=== PATIENT | male | born 1960 | race Caucasian/White ===

== ENCOUNTER 2024-01-02 12:57 | Outpatient (REF) | payer MEDICARE, SELFPAY ==
[2024-01-02 13:15] LABS: MANUAL DIFF FLAG NO
[2024-01-02 13:41] LABS: Basophils Percent Auto 0.5 % (0-2); Eosinophils Percent Auto 0.4 % (0-4); Hematocrit 38.2 % (42.0-52.0); Hemoglobin 13.4 g/dl (14.0-18.0); Imm Gran Abs Auto 0.02 X10*3/uL (0.00-0.03); Imm Gran Pct Auto 0.3 % (0.0-0.4); Lymphocytes Absolute Auto 2.6 X10*3/uL (1.2-4.9); Mean Corpuscular HGB Conc 35.1 g/dl (31.0-36.0); Mean Corpuscular Hemoglobin 32.9 pg (27.0-33.0); Mean Corpuscular Volume 93.9 fL (80.0-98.0); Mean Platelet Volume 9.4 fL (9.4-12.4); Monocytes Absolute Auto 0.5 X10*3/uL (0.1-1.2); Monocytes Percent Auto 5.9 % (2-11); Neutrophils Absolute Auto 4.9 x10*3/uL (2.0-8.3); Neutrophils Percent Auto 60.9 % (45-73); Platelet Count 256 X10*3/uL (160-400); Red Blood Count 4.07 X10*6/uL (4.60-5.80); Red Cell Distribution Width 12.7 % (11.0-16.0)
[2024-01-02 13:51] LABS: Estimated Average Glucose 108 mg/dL; Hemoglobin A1c % 5.4 % (<6.0)
[2024-01-02 14:18] LABS: Alanine Aminotransferase 26 U/L (0-40); Albumin Level 4.3 g/dL (3.5-5.0); Alkaline Phosphatase 54 U/L (39-117); Anion Gap 13 (12-20); Aspartate Amino Transferase 25 U/L (5-37); Bilirubin Total 0.3 mg/dL (0.0-1.0); Blood Urea Nitrogen 5 mg/dL (9-16); Calcium 9.4 mg/dL (8.4-10.2); Carbon Dioxide 30 mmol/L (22-29); Chloride 104 mmol/L (96-108); Cholesterol 182 mg/dL (<200); Estimated Glomerular Filt Rate > 60; Glucose Random 83 mg/dL (60-115); HDL Cholesterol 107 mg/dL (>40); LDL Cholesterol Calculated 63 mg/dL (<100); Potassium 3.9 mmol/L (3.3-5.1); Sodium 143 mmol/L (135-145); Total Protein 6.7 g/dL (6.5-8.0); Triglycerides 63 mg/dL (<150)
[2024-01-02 14:26] LABS: Free T4 (Free Thyroxine) 1.08 ng/dL (0.71-1.85)
== END 2024-01-02 12:58 | disposition home or self-care (01) ==
LOC: HO.LAB 12:57
PROVIDERS: Visit Provider Registered Nurse
DX: E78.5 Hyperlipidemia, unspecified (principal); F20.9 Schizophrenia, unspecified
CPT/HCPCS: 36415; 80053; 80061; 83036; 84439; 84443; 85025

== ENCOUNTER 2024-05-08 08:55 | Outpatient (REF) | payer MEDICARE, SELFPAY ==
[2024-05-08 09:48] LABS: Iron 100 mcg/dL (45-160); Percent Iron Saturation 29 % (15-50); Total Iron Binding Capacity 346 mcg/dL (228-428); Unsaturated Iron Binding 246 ug/dL
[2024-05-08 10:24] LABS: Folate > 20.0 ng/mL (> or = 4.0); Vitamin B12 473 pg/mL (200-900)
== END 2024-05-08 08:56 | disposition home or self-care (01) ==
LOC: HO.LAB 08:55
PROVIDERS: PCP Nurse Practitioner Family; Visit Provider Nurse Practitioner Family
DX: F20.9 Schizophrenia, unspecified (principal); F10.20 Alcohol dependence, uncomplicated; J44.9 Chronic obstructive pulmonary disease, unspecified; I10 Essential (primary) hypertension
CPT/HCPCS: 36415; 82607; 82746; 83540

== ENCOUNTER 2024-09-04 10:32 | Emergency (ER) | payer MEDICARE, SELFPAY ==
[2024-09-04] VITALS (31 sets, daily range): BP systolic 104–160; BP diastolic 56–86; PULSE 87–122; RESP 13–25; TEMP -17.7–0; O2SAT 89–100; BMI 23.5
--- NOTE | ~2024-09-04 | CT_ITS ---
CLINICAL HISTORY: intox, head injury CT cervical spine without contrast Comparison: None Findings: Evaluation mildly limited by motion artifact. Grade 1 retrolisthesis of C5 on C6. Multilevel degenerative disc disease and facet osteoarthritis. Mild central canal stenosis at C6-C7. Moderate stenosis of bilateral neural foramina at C3-C4, C4-C5, C5-C6 and C6-C7. Synovitis of the right facet joint at C2-C3. Ankylosis of the right facet joint at C3-C4 and at least partial ankylosis of the left facet joint at C3-C4. No acute fractures or dislocations. No acute findings on limited view of the intracranial contents. Soft tissues of the neck are normal. No consolidation or effusion at the lung apices. IMPRESSION: No cervical spine fracture. This document has been electronically signed by: Shayy Ortiz MD on 09/04/2024 18:12:05
--- NOTE | ~2024-09-04 | CT_ITS ---
EXAMINATION: CT HEAD WITHOUT CONTRAST CLINICAL INFORMATION: Head trauma. COMPARISON: None available. TECHNIQUE: Contiguous axial imaging was performed from the skull base to vertex without intravenous administration of contrast. This CT examination was performed using dose optimization techniques as appropriate, variously including the following: *Automated exposure control *Adjustment of mA and/or kV according to patient size (this includes techniques or standardized protocols for targeted exams where dose is matched to indication/reason for exam; i.e. extremities or head) *Use of iterative reconstruction technique FINDINGS: There is a tiny focus of suspected subarachnoid hemorrhage in the left frontal sulci (series 6, image 17). There is no additional intracranial hemorrhage or extra-axial fluid collection. There is no mass effect, or edema. No CT evidence of acute territorial infarct. Ventricles, sulci, and cisterns are normal in size and configuration for patient age. No hydrocephalus. No midline shift. No significant white matter abnormalities. Normal-appearing pituitary gland Mild atheromatous calcification of the bilateral carotid siphons and V4 segments vertebral arteries bilaterally. Globes and orbital contents demonstrate left preseptal and perizygomatic soft tissue swelling. No post septal abnormalities. No extracranial soft tissue abnormalities. Left nasal septal deviation. The paranasal sinuses, mastoid air cells, and tympanic cavities are normally aerated. No definite acute fractures. Probable old nasal bone fractures which appear healed. There is left preseptal and supraorbital soft tissue swelling of the scalp. CT/CT head/brain wo IV con IMPRESSION: 1. Tiny focus of subarachnoid hemorrhage suspected in the left frontal sulci. No extra-axial fluid collection. No mass effect or edema. 2. No definite acute fracture identified. Probable old nasal bone fractures. 3. Left periorbital and supraorbital soft tissue swelling. Electronically signed by: Landon Watson MD 09/04/2024 04:46 PM [facility] [place]
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
--- NOTE | 2024-09-04 10:49 | ED_ITS ---
HPI - General Adult General Chief complaint: ETOH/Substance Use Stated complaint: FALL,L EYE LAC,ETOH/WEED USE,NOT COOP/HPD/SAFETY Time Seen by Provider: 09/04/24 10:48 History of Present Illness ED Provider: Buster SCOTT narrative: The patient is a 64-year-old male who was brought to the hospital after being found down on a sidewalk with a laceration in the region of the left eyebrow. The patient seemed intoxicated. He was uncooperative, combative, threatening, and foul-mouthed. He would not give any history. We do not seem to have any old records at this hospital. No other information is available. Related Data Allergies Allergy/AdvReac Type Severity Reaction Status Date / Time amoxicillin [AMOXICILLIN] Allergy Unknown UNKNOWN Verified 09/04/24 10:54 Review of Systems 2 Review of Systems: Yes Unobtainable due to mental status PMFSH Social History Social History Advance Directives: No Physical Exam ED Vital Signs: Vital Signs - 24 hr 09/04/24 10:47 09/04/24 10:50 09/04/24 11:05 Temperature 0 F L Pulse Rate 122 H 112 H Respiratory Rate 16 15 Blood Pressure 146/58 H 146/58 H 160/58 H Pulse Oximetry 100 95 Oxygen Delivery Method Room Air Room Air 09/04/24 11:19 09/04/24 11:34 09/04/24 11:38 Temperature Pulse Rate 106 H 90 87 Respiratory Rate 23 H 13 14 Blood Pressure 144/59 H Pulse Oximetry 98 99 97 Oxygen Delivery Method Room Air Room Air Room Air 09/04/24 11:40 09/04/24 11:54 09/04/24 12:09 Temperature Pulse Rate 97 Respiratory Rate 15 Blood Pressure 148/82 H 128/86 144/75 H Pulse Oximetry 93 Oxygen Delivery Method Room Air 09/04/24 12:14 09/04/24 12:17 09/04/24 12:18 Temperature Pulse Rate 106 H 100 101 H Respiratory Rate 18 17 20 Blood Pressure 130/64 Pulse Oximetry 97 99 Oxygen Delivery Method Room Air Room Air 09/04/24 12:20 09/04/24 12:24 09/04/24 12:29 Temperature Pulse Rate 96 103 H 105 H Respiratory Rate 15 19 16 Blood Pressure 135/70 126/75 116/76 Pulse Oximetry 98 94 91 L Oxygen Delivery Method Room Air Room Air Room Air 09/04/24 12:31 09/04/24 12:33 09/04/24 12:34 Temperature Pulse Rate 108 H 113 H 116 H Respiratory Rate 14 19 17 Blood Pressure 142/76 H Pulse Oximetry 90 L Oxygen Delivery Method Room Air 09/04/24 12:37 09/04/24 12:40 09/04/24 12:45 Temperature Pulse Rate 107 H 104 H 98 Respiratory Rate 20 19 18 Blood Pressure 159/81 H 125/73 135/73 Pulse Oximetry 95 93 94 Oxygen Delivery Method Room Air Room Air Room Air 09/04/24 13:02 09/04/24 15:45 09/04/24 16:38 Temperature Pulse Rate 103 H 101 H 115 H Respiratory Rate 17 13 17 Blood Pressure 148/64 H 140/56 H 132/86 Pulse Oximetry 96 94 89 L Oxygen Delivery Method Room Air Room Air Room Air 09/04/24 16:40 09/04/24 17:01 09/04/24 18:27 Temperature Pulse Rate 101 H 110 H 113 H Respiratory Rate 20 20 20 Blood Pressure 138/76 126/70 131/74 Pulse Oximetry 94 96 95 Oxygen Delivery Method Room Air Room Air Room Air BMI result Body Mass Index 23.5 Const Other: The patient was awake, agitated, confrontational, and aggressive. He seemed intoxicated. He was foul-mouthed. He had an obvious wound to the skin in the region of his left eyebrow but no other signs of obvious trauma. HENMT Other: There is a 1.5 cm laceration just below the left eyebrow. There is dried blood in the region of the eyebrow and on the side of the face. No marked soft tissue swelling. No raccoon eyes. No thompson sign. Eyes Other: Pupils are round equal, conjunctivae are clear, extraocular movements are intact. Neck Other: No obvious step-off for obvious C-spine tenderness but the patient is significantly intoxicated and cannot be evaluated clinically. Resp Effort & Inspection: normal respiratory effort Auscultation: clear to auscultation bilaterally Cardio Rate: tachycardic Rhythm: regular rhythm Heart sounds: S1 normal heart sound present and S2 normal heart sound present GI Other: The abdomen is flat and soft and not apparently tender. Skin Other: There is a 1.5 cm laceration in the region of the left eyebrow. The skin is otherwise intact Neuro Other: The patient was awake but seemed intoxicated. He was confrontational, screaming, and foul mouthed. Eye movements seemed intact. Facial movements seemed symmetrical. Speech was slightly slurred but not severely. He did not have bao dysarthria up or aphasia although testing him formally was impossible because he was not cooperative. He moves his extremities symmetrically. No obvious focal neurological deficit but he does seem intoxicated. Extrem Other: No deformities to the extremities. No peripheral edema Medications Administered Discontinued Medications Generic Name Dose Route Start Last Admin Trade Name Freq PRN Reason Stop Dose Admin Chlorpromazine HCl 50 mg 09/04/24 18:01 09/04/24 18:05 Chlorpromazine Hcl 25 Mg/Ml Ampul IM 09/04/24 18:02 50 mg ONCE ONE Administration Diphenhydramine HCl 50 mg 09/04/24 13:57 09/04/24 14:30 Diphenhydramine Hcl 50 Mg/Ml Vial IM 09/04/24 13:58 50 mg ONCE ONE Administration Haloperidol Lactate 10 mg 09/04/24 15:03 09/04/24 15:16 Haloperidol Lactate 5 Mg/Ml Vial IM 09/04/24 15:04 10 mg STAT STA Administration Lidocaine/Epinephrine 10 ml 09/04/24 16:02 09/04/24 16:13 Lidocaine Hcl 1%/Epi 1:100,000 10 Ml Vial INFILTRATI 09/04/24 16:03 10 ml ONCE ONE Administration Lorazepam 2 mg 09/04/24 10:50 09/04/24 11:02 Lorazepam 2 Mg/Ml Vial IM 09/04/24 10:51 2 mg ONCE ONE Administration Lorazepam 2 mg 09/04/24 13:58 09/04/24 14:30 Lorazepam 2 Mg/Ml Vial IM 09/04/24 13:59 2 mg STAT STA Administration Lorazepam 4 mg 09/04/24 15:03 09/04/24 15:16 Lorazepam 2 Mg/Ml Vial IM 09/04/24 15:04 4 mg STAT STA Administration Midazolam HCl 5 mg 09/04/24 11:09 09/04/24 11:13 Midazolam Hcl 5 Mg/Ml Vial IM 09/04/24 11:10 5 mg ONCE ONE Administration Midazolam HCl 5 mg 09/04/24 12:03 09/04/24 12:10 Midazolam Hcl 5 Mg/Ml Vial IM 09/04/24 12:04 5 mg ONCE ONE Administration Midazolam HCl 10 mg 09/04/24 15:25 09/04/24 15:31 Midazolam Hcl 5 Mg/Ml Vial IM 09/04/24 15:26 10 mg ONCE ONE Administration Midazolam HCl 10 mg 09/04/24 18:01 09/04/24 18:05 Midazolam Hcl 5 Mg/Ml Vial IM 09/04/24 18:02 10 mg ONCE ONE Administration Olanzapine 10 mg 09/04/24 10:50 09/04/24 11:02 Olanzapine 10 Mg Vial IM 09/04/24 10:51 10 mg ONCE ONE Administration Olanzapine 10 mg 09/04/24 12:03 09/04/24 12:10 Olanzapine 10 Mg Vial IM 09/04/24 12:04 10 mg ONCE ONE Administration Procedures Laceration Laceration 1: Site: face (Just below left eyebrow) Side (If applicable): left Size (cm): 1.5 Description: linear Depth: simple, single layer Local Anesthetic: lidocaine 1% and with epi Amount of anesthesia used (mL): 3 Pre-repair: wound explored, irrigated extensively and deep structures intact Skin layer closed with: other (Chromic gut) Size (cm): 6-0 Number of sutures: 4 Technique: simple, interrupted Medical Decision Making Medical Decision Making [facility] Narrative: The patient is a 64-year-old male who was brought by paramedics after having been found on the sidewalk with signs of a head injury. He has a laceration in the region of the left eyebrow. This seems to be the only obvious sign of injury. The patient seemed to be significantly intoxicated and was uncooperative, belligerent, confrontational, foul mouthed, and disruptive. Given his apparent injury, his intoxication, and his uncooperative illness I felt he needed to be restrained and sedated. He was placed in 4 point restraints and given IM injections of sedative medications. The patient was remarkably difficult to sedate. He was initially given 10 mg of olanzapine IM and 2 mg of IM lorazepam. This did not produce much sedation and so he was subsequently given another dose of 10 mg of IM olanzapine and 5 mg IM midazolam. Ultimately other medications sedation included another 5 mg of IM midazolam, 10 mg of haloperidol IM, 50 mg of diphenhydramine IM, and additional IM midazolam and lorazepam. Despite all this he still was not really completely sedated. He was calmer however and we were able to wheel him to CT scan and, after strapping him into the CT scan table, we could obtain imaging of his head and cervical spine. When we returned him to the room at that point I do not feel that he needed to continue in any limb restraints. I was able to address his laceration with sutures. While on certified physician's assistant held his hands I administered lidocaine with epinephrine for anesthesia. I then cleaned the wound in the region of the left eyebrow and was able to visualize and explored the wound. This is a linear laceration of approximately 1.5 cm in length. I close the wound with 6 simple interrupted sutures gut (I chose this suture material as I do not feel confident about the patient has ability to follow up for suture removal in the future). Although the patient was out of restraints for awhile at the time that I repaired his laceration and for some time after he ultimately became belligerent again and had to be placed in 4 point restraints again. At that point he was given 10 mg of midazolam and 50 mg of [address]prom[address]. The CT scan of his brain shows a small intraparenchymal subarachnoid hemorrhage in the left frontal lobe. The CT scan of the cervical spine is negative. Given his alcohol intoxication, the finding of a small subarachnoid hemorrhage on his, and his ongoing need for sedation I felt the patient would need to be hospitalized and that hospitalization at a trauma center would be the most appropriate. I contacted [facility] and spoke to Dr. Haley of the emergency room who accepted the patient in transfer. Lab Data 09/04/24 12:04 09/04/24 12:04 Labs: Lab Results 09/04/24 09/04/24 Range/Units 12:04 16:34 WBC 11.6 H (4.8-10.8) X10*3/uL RBC 4.24 L (4.60-5.80) X10*6/uL Hgb 13.9 L (14.0-18.0) g/dl Hct 40.2 L (42.0-52.0) % MCV 94.8 (80.0-98.0) fL MCH 32.8 (27.0-33.0) pg MCHC 34.6 (31.0-36.0) g/dl RDW 13.1 (11.0-16.0) % Plt Count 216 (160-400) X10*3/uL MPV 9.3 L (9.4-12.4) fL Immature Gran % (Auto) 0.5 H (0.0-0.4) % Neut % (Auto) 79.7 H (45-73) % Lymph % (Auto) 12.9 L (20-40) % Cameron % (Auto) 6.5 (2-11) % Eos % (Auto) 0.1 (0-4) % Baso % (Auto) 0.3 (0-2) % Lymph # (Auto) 1.5 (1.2-4.9) X10*3/uL Cameron # (Auto) 0.8 (0.1-1.2) X10*3/uL Eos # (Auto) 0.0 (0.0-0.4) X10*3/uL Baso # (Auto) 0.0 (0.0-0.2) X10*3/uL Abs Immat Gran (auto) 0.06 H (0.00-0.03) X10*3/uL Absolute Neuts (auto) 9.3 H (2.0-8.3) x10*3/uL Absolute Nucleated RBC 0.000 (0.0-0.012) X10*3/uL Nucleated RBC % (auto) 0.0 (0.0-0.2) /100WBC Sodium 139 (135-145) mmol/L Potassium 3.7 (3.3-5.1) mmol/L Chloride 105 (96-108) mmol/L Carbon Dioxide 22 (22-29) mmol/L Anion Gap 16 (12-20) BUN 8 L (9-16) mg/dL Creatinine 0.72 (0.5-1.4) mg/dL Estim Creat Clear Calc 111.8 Estimated GFR > 60 Random Glucose 131 H (60-115) mg/dL Calcium 9.1 (8.4-10.2) mg/dL Magnesium 2.0 (1.6-2.6) mg/dL Total Bilirubin 0.3 (0.0-1.0) mg/dL Direct Bilirubin 0.1 (0.0-0.5) mg/dL AST 23 (5-37) U/L ALT 21 (0-40) U/L Alkaline Phosphatase 55 (39-117) U/L Total Protein 7.3 (6.5-8.0) g/dL Albumin 4.6 (3.5-5.0) g/dL Urine Opiates Screen Not Detected (Not Detect) Ur Buprenorphine Scrn Not Detected (Not Detect) ng/mL Ur Oxycodone Screen Not Detected (Not Detect) ng/mL Urine Methadone Screen Not Detected (Not Detect) ng/mL Urine Fentanyl Screen Not Detected (Not Detect) Ur Barbiturates Screen Not Detected (Not Detect) Ur Phencyclidine Scrn Not Detected (Not Detect) Ur Amphetamines Screen Not Detected (Not Detect) U Benzodiazepines Scrn POSITIVE H (Not Detect) Urine Cocaine Screen Not Detected (Not Detect) U Marijuana (THC) Screen POSITIVE H (Not Detect) Ethyl Alcohol 303 H* mg/dL Critical Care Time Critical Care Time Critical Care Time: Yes Total Critical Care Time: 35 Attestation: The patient was critically ill with a high probability of imminent or life- threatening deterioration. ?I spent greater than 30 minutes of discontinuous time evaluating the patient, delivering critical care at the bedside, discussing evaluating data with consultants. ?Critical care time does not include time spent performing separately billable procedures or teaching. ?Time spent performing critical care with 35 minutes. Discharge Plan Discharge Clinical Impression: Traumatic subarachnoid hemorrhage, Alcohol intoxication, Laceration of left eyebrow, Agitation Patient Disposition: [facility] Transfer Details: [facility], transferred to emergency room Print Language: Mauritian
--- NOTE | 2024-09-04 10:51 | ECG_ITS ---
Test Reason : ETOH Blood Pressure : */* mmHG Vent. Rate : 0 BPM Atrial Rate : 0 BPM P-R Int : * ms QRS Dur : 0 ms QT Int : 0 ms P-R-T Axes : 0 0 0 degrees QTcB Int : 0 ms No QRS complexes found, no ECG analysis possible When compared with ECG of 20-May-2018 16:22, MANUAL COMPARISON REQUIRED CURRENT ECG IS INCOMPATIBLE Referred By: Olu Goins Electronically Signed By: SULLY MARTINO
[2024-09-04] MEDS: LORazepam 2 MG/ML VIAL IM ×2 (11:02→14:30)
[2024-09-04] MEDS: OLANZapine 10 MG VIAL IM ×2 (11:02→12:10)
[2024-09-04] MEDS: Midazolam HCl 5 MG/ML VIAL IM ×2 (11:13→12:10)
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
[2024-09-04 12:08] LABS: MANUAL DIFF FLAG NO
[2024-09-04 12:11] LABS: Basophils Percent Auto 0.3 % (0-2); Eosinophils Percent Auto 0.1 % (0-4); Hematocrit 40.2 % (42.0-52.0); Hemoglobin 13.9 g/dl (14.0-18.0); Imm Gran Abs Auto 0.06 X10*3/uL (0.00-0.03); Imm Gran Pct Auto 0.5 % (0.0-0.4); Lymphocytes Absolute Auto 1.5 X10*3/uL (1.2-4.9); Lymphocytes Percent Auto 12.9 % (20-40); Mean Corpuscular HGB Conc 34.6 g/dl (31.0-36.0); Mean Corpuscular Hemoglobin 32.8 pg (27.0-33.0); Mean Corpuscular Volume 94.8 fL (80.0-98.0); Mean Platelet Volume 9.3 fL (9.4-12.4); Monocytes Absolute Auto 0.8 X10*3/uL (0.1-1.2); Monocytes Percent Auto 6.5 % (2-11); Neutrophils Absolute Auto 9.3 x10*3/uL (2.0-8.3); Neutrophils Percent Auto 79.7 % (45-73); Platelet Count 216 X10*3/uL (160-400); Red Blood Count 4.24 X10*6/uL (4.60-5.80); Red Cell Distribution Width 13.1 % (11.0-16.0); White Blood Count 11.6 X10*3/uL (4.8-10.8)
[2024-09-04 12:24] LABS: Ethanol 303 mg/dL
[2024-09-04 12:37] LABS: Alanine Aminotransferase 21 U/L (0-40); Albumin Level 4.6 g/dL (3.5-5.0); Alkaline Phosphatase 55 U/L (39-117); Anion Gap 16 (12-20); Aspartate Amino Transferase 23 U/L (5-37); Bilirubin Direct 0.1 mg/dL (0.0-0.5); Bilirubin Total 0.3 mg/dL (0.0-1.0); Blood Urea Nitrogen 8 mg/dL (9-16); Calcium 9.1 mg/dL (8.4-10.2); Carbon Dioxide 22 mmol/L (22-29); Chloride 105 mmol/L (96-108); Creatinine Clr Calc Pharmacy 111.8; Estimated Glomerular Filt Rate > 60; Glucose Random 131 mg/dL (60-115); Potassium 3.7 mmol/L (3.3-5.1); Sodium 139 mmol/L (135-145); Total Protein 7.3 g/dL (6.5-8.0)
--- NOTE | 2024-09-04 12:41 | PC.NURSE ---
Pt. still thrashing around in four point restraints. Has been medicated as well multiple times. Continues to call staff members whores, racial slurs, suck my balls and making detailed HI statements.
--- NOTE | 2024-09-04 13:16 | PC.NURSE ---
LL and RL restraints trial removal
--- NOTE | 2024-09-04 13:17 | MHC.EDTECH ---
This pct attempted to obtain an EKG when ordered but due to the patients increased agitation not able to obtain EKG at this time but will try again later once the patient is calm. RN Aware
[2024-09-04] MEDS: diphenhydrAMINE HCL 50 MG/ML VIAL IM (14:30)
--- NOTE | 2024-09-04 14:30 | PC.NURSE ---
Pt. remains aggrssive towards staff. Remains in only RA and LA restraints. Making HI statements and verbally assaultive, trying to kick with free legs. Pt. medicated with IM Ativan 2mg and 50mg IM Benadryl
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
--- NOTE | 2024-09-04 14:55 | MHC.EDTECH ---
This pct attempted to obtain an EKG on this patient but the patient is still very agitated and vitals were not able to be recorded do to patients continued agitation. RN Aware
[2024-09-04] MEDS: Haloperidol Lactate 5 MG/ML VIAL 10 MG IM (15:16)
[2024-09-04] MEDS: LORazepam 2 MG/ML VIAL 4 MG IM (15:16)
[2024-09-04] MEDS: Midazolam HCl 5 MG/ML VIAL 10 MG IM ×2 (15:31→18:05)
--- NOTE | 2024-09-04 16:00 | PC.NURSE ---
Pt. returned from CT. Calm at this moment. Pt. is on campus monitor and continuous SPO2 monitor. Out of RA and LA restraints at this time. Pt. is completely out of all four restraints.
[2024-09-04] MEDS: Lidocaine HCl 1%/Epi 1:100,000 10 ML VIAL INFILTRATI (16:13)
[2024-09-04 16:50] LABS: Amphetamine Screen Urine Not Detected (Not Detect); Barbiturates, Urine Not Detected (Not Detect); Benzodiazepines Screen Urine POSITIVE (Not Detect); Buprenorphine Scr Not Detected (Not Detect); Cannabinoid Screen Urine POSITIVE (Not Detect); Cocaine Screen Urine Not Detected (Not Detect); Fentanyl, urine Not Detected (Not Detect); Methadone Screen, Urine Not Detected (Not Detect); Opiate Screen Urine Not Detected (Not Detect); Oxycodone Screen Urine Not Detected (Not Detect); Phencyclidine Screen Urine Not Detected (Not Detect)
[2024-09-04] MEDS: chlorproMAZINE HCl 25 MG/ML AMPUL 50 MG IM ×2 (18:05→19:30)
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
--- NOTE | 2024-09-04 18:48 | PC.NURSE ---
Report given to RICK Reddy and David RN
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
--- NOTE | 2024-09-04 19:34 | MHC.EDTECH ---
This pct assumed Care of Patient at 1900 ,This pct attempted to do Patient ekg ,Patient removed all leads ,and ,cursing and Pinching this pct ,RICK Moya aware .
== END 2024-09-04 19:41 | disposition short-term general hospital (02) ==
PROVIDERS: Emergency Provider Emergency Medicine
DX: S06.6XAA Traumatic subarachnoid hemorrhage with loss of consciousness status unknown, initial encounter (principal); S01.112A Laceration without foreign body of left eyelid and periocular area, initial encounter; X58.XXXA Exposure to other specified factors, initial encounter; F10.920 Alcohol use, unspecified with intoxication, uncomplicated; Y90.8 Blood alcohol level of 240 mg/100 ml or more; R45.1 Restlessness and agitation; F12.90 Cannabis use, unspecified, uncomplicated; Y93.9 Activity, unspecified; Y92.410 Unspecified street and highway as the place of occurrence of the external cause; Y99.9 Unspecified external cause status
CPT/HCPCS: 12011; 36415; 70450; 72125; 80048; 80076; 80307; 83735; 85025; 93005; 96372; 99285; J1200; J1630; J2004; J2060; J2250; J2359; J3230

== ENCOUNTER → 2024-09-04 10:51 | Outpatient (BNV) | payer MEDICARE, SELFPAY | PROVIDERS: Emergency Provider Emergency Medicine; Visit Provider Internal Medicine | DX: F10.129 Alcohol abuse with intoxication, unspecified (principal) | CPT/HCPCS: 93010 ==

== ENCOUNTER → 2024-09-04 10:51 | Outpatient (BNV) | payer MEDICARE, SELFPAY | PROVIDERS: Emergency Provider Emergency Medicine; Visit Provider Radiology Diagnostic Radiology | DX: S19.9XXA Unspecified injury of neck, initial encounter (principal); S09.90XA Unspecified injury of head, initial encounter | CPT/HCPCS: 70450 ==